=== PATIENT | female | born 1990 | race Caucasian/White ===

== ENCOUNTER 2016-11-25 16:26 | Day surgery (SDC) | payer OTHER ==
[2016-11-25] MEDS ORDERED: LIDOCAINE 1% 5 ML SDV ONE (17:05)
[2016-11-25] MEDS ORDERED: BUPIVACAINE 0.5% 30 ML SDV ONE (18:57)
[2016-11-25] MEDS ORDERED: POLYMYXIN B SULFATE 500,000 UNIT/10 ML SYR IRR ONE (18:57)
[2016-11-25] MEDS ORDERED: BACITRACIN 50,000 UNITS/10 ML SYR IRR ONE (18:57)
[2016-11-25] MEDS ORDERED: OXYCODONE/APAP 5/325 TAB PO PRN (18:59)
[2016-11-25] MEDS ORDERED: CLINDAMYCIN 900 MG/DEXTROSE 50 ML IV ONE (19:00)
[2016-11-25] MEDS ORDERED: MIDAZOLAM 2 MG/2 ML VIAL ONE (19:06)
[2016-11-25] MEDS ORDERED: SCOPOLAMINE HYDROBROMIDE 1.5 MG PATCH TD ONE (19:07)
[2016-11-25] MEDS ORDERED: fentaNYL 250 MCG/5 ML INJ ONE (19:10)
[2016-11-25] MEDS ORDERED: PROPOFOL/EMULSION 500 MG/50 ML BOTTLE IV ONE (19:10)
[2016-11-25] MEDS ORDERED: LIDOCAINE 2% 5 ML SDV ONE (19:38)
[2016-11-25] MEDS ORDERED: DEXAMETHASONE 4 MG/ML VIAL ONE (19:38)
[2016-11-25] MEDS ORDERED: ONDANSETRON 4 MG/2 ML VIAL ONE (19:38)
[2016-11-25] MEDS ORDERED: fentaNYL 100 MCG/2 ML INJ ONE (20:31)
[2016-11-25] MEDS ORDERED: PROMETHAZINE HCL 25 MG/ML INJ ONE (20:51)
[2016-11-25] MEDS ORDERED: OXYCODONE/APAP 5/325 TAB ONE (20:52)
== END 2016-11-25 21:35 | disposition home or self-care (01) ==
LOC: FSGY 16:26
PROVIDERS: ATTEND Orthopaedic Surgery Sports Medicine
PROC: 0JDL0ZZ Extraction of Right Upper Leg Subcutaneous Tissue and Fascia, Open Approach (ICD-10-PCS; principal; 2016-11-25 17:30)
DX: T81.4XXA Infection following a procedure, initial encounter (principal); B95.61 Methicillin susceptible Staphylococcus aureus infection as the cause of diseases classified elsewhere
CPT/HCPCS: J1100; J2250; J2405; J2550; J2704; J3010